=== PATIENT | male | born 1970 | race Caucasian/White ===

== ENCOUNTER 2017-02-22 02:19 | Inpatient (IN) | payer OTHER, MEDICARE ==
[~2017-02-22] VITALS: Ht 177.8 cm; Wt 101.2 kg
[~2017-02-22 02:19] MED LIST: ALBUTEROL1.25 MG/3 INH/SOL; ALLEGRA180 MG PO; AUGMENTIN 875875 MG PO; CIPRO 500MG TA500 MG PO; CLARITIN10 MG PO; COLACE100 MG PO; FLUTICASON0.05 MG/A2 INH; LIDODERM 5% PAT1 PAT TOP; MONTELUKAST SOD10 MG PO; MORPHINE SULFAT15 MG PO; OXYCODONE HCL30 MG PO; OXYCODONE HYDRO10 M1 PO; PRILOSEC 20MG C20 MG PO; REGLAN10 MG PO; Robitussin PO; Senokot S PO; VITAMIN D50000 IU PO
--- NOTE | 2017-02-22 03:42 | CT SCAN REPORT ---
EXAMINATION: CT ABDOMEN AND PELVIS WITHOUT CONTRAST CLINICAL INFORMATION: Nausea and vomiting. Abdominal distention. COMPARISON: 08/16/2014 TECHNIQUE: Multidetector volumetric imaging was performed from the superior aspect of the liver through the pubic symphysis. Sagittal and coronal reformatted images were obtained on the technologist's workstation. DLP: 1247 mGy-cm FINDINGS: LUNG BASES: The visualized lung bases are unremarkable. LIVER, GALLBLADDER, AND BILIARY TREE: The liver is enlarged, measuring 23 cm in CC dimension. There is diffusely decreased attenuation, consistent with hepatic steatosis. No focal hepatic lesion. The portal vein is patent. The gallbladder is not seen. It appears absent. PANCREAS: Mild atrophy with no focal abnormality. SPLEEN: Unremarkable. ADRENAL GLANDS: Fatty infiltration of both adrenal glands. Left adrenal fat attenuation nodule. KIDNEYS AND URETERS: Likely status post right nephrectomy. The left kidney is normal in size. No hydronephrosis or nephrolithiasis. Left midpole renal cyst is similar to prior. BLADDER: Unremarkable. GASTROINTESTINAL TRACT: The stomach is distended without wall thickening. The small bowel is fluid-filled and mildly prominent proximally with the distal small bowel decompressed. No obstruction. No colonic wall thickening. No inflammatory changes. Mild colonic stool burden. No free air or free fluid. ABDOMINAL WALL: No significant hernia is appreciated. LYMPH NODES: Normal. VASCULAR: Unremarkable. PELVIC VISCERA: The prostate and seminal vesicles are unremarkable. OSSEOUS STRUCTURES: Degenerative changes throughout the spine with hardware intact. Degenerative changes of the hips. IMPRESSION: Anterolaterally with hepatic steatosis. Fluid-filled small bowel proximally without obstruction. Distended stomach. Mild colonic stool burden.
--- NOTE | 2017-02-22 03:50 | ED GI/GU/ABDOMINAL COMPLAINT ---
History of Present Illness General Chief Complaint: Dizziness Stated Complaint: BIBA DIZZINESS Source: patient, old records, EMS, friend Exam Limitations: no limitations Vital Signs & Intake/Output Vital Signs & Intake/Output Vital Signs Date Time Temp Pulse Resp B/P B/P Pulse O2 O2 Flow FiO2 Mean Ox Delivery Rate 02/22 0555 129 20 141/93 97 Nasal 2.0L Cannula 02/22 0330 100.5 126 20 97 Nasal 2.0L Cannula 02/22 0240 96 Room Air Room Air 02/22 0224 98.1 115 18 137/73 98 Room Air Allergies Coded Allergies: MDX - Contrast Media, Iodine Relate (CONTRAST MEDIA, IODINE RELATED) (RAPID PULSE 02/22/17) Reconcile Medications Albuterol Sulfate (Albuterol Sulfate Nebulizer Soln) 1.25 MG/3 ML VIAL.NEB 3 ML INH/NAOMI PRN DYSPNEA (Reported) Docusate Sodium (Colace) 100 MG CAPSULE 1 CAP PO TID CONSTIPATION (Reported) ERGOCALCIFEROL (VITAMIN D2) (Vitamin D2) 50,000 UNIT CAPSULE 1 CAP PO QW SUPPLEMENT (Reported) Fexofenadine Hydrochloride (Janice) 180 MG TAB 1 TAB PO DAILY ALLERGIES ( Reported) Lidocaine HCl (Lidoderm Patch) 5 % PAT 1 PAT TOP DAILY PAIN (Reported) may wear up to 12 hours METOCLOPRAMIDE HCL (Reglan) 10 MG TABLET 1 TAB PO TID NAUSEA 30 minutes before meals and bedtime Omeprazole (Prilosec) 20 MG CAPSULE.DR 1 TAB PO DAILY AC ACID REFLUX OXYCODONE HCL (Oxycodone Hydrochloride) 10 MG TABLET 1 TAB PO TID PAIN Triage Note: 46YO MALE TO RM 10 FROM HOME W/CO VOMITING TONITE W/FEELING WEAK. HS PARAPLEGIA, INDWELLING CATH PRESENT. STTES IT "WAS CHANGED 4 D AGO" URINE DRAINING SLIGHTLY CLOUDY URINE. Triage Nurses Notes Reviewed? yes Onset: Evening Duration: hour(s):, constant, continues in ED, getting worse Timing: recent history Quality/Severity: aching, fullness, vomiting Location: left lower quadrant Radiation: no radiation Activities at Onset: none Prior Abdominal Problems: similar symptoms Past Sexual History: Unobtainable at this time Modifying Factors: Worsens With: palpation. Associated Symptoms: abdominal pain, diaphoresis, loss of appetite, nausea/ vomiting HPI: Less than 1 day prior to admission patient complains of left-sided abdominal pain improved with lying on his left side. He noted there was no urine output. He changed position reports that 2 L of urine drained. He subsequently developed nausea vomiting abdominal distention with chills diaphoresis anxiety. He denies fever diarrhea chest pain cough shortness of breath headache dysuria rash bleeding. Past History Travel History Traveled to [place] past 21 day No Medical History Any Pertinent Medical History? 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 aunt (breast cancer). Relation not specified for: FH: breast cancer FH: prostate cancer Hx Contributory? No Review of Systems Review of Systems Constitutional: Reports: see HPI, chills, diaphoresis, malaise, weakness. EENTM: Reports: no symptoms. Respiratory: Reports: no symptoms. Cardiovascular: Reports: no symptoms. GI: Reports: see HPI, abdominal pain, bloating, distention, nausea, vomiting. Genitourinary: Reports: see HPI. Musculoskeletal: Reports: no symptoms. Skin: Reports: no symptoms. Neurological/Psychological: Reports: no symptoms. Hematologic/Endocrine: Reports: no symptoms. Immunologic/Allergic: Reports: no symptoms. All Other Systems: Reviewed and Negative Physical Exam Physical Exam General Appearance: well developed/nourished, alert, awake, anxious, moderate distress Head: atraumatic, normal appearance Eyes: Bilateral: normal appearance, PERRL, EOMI, normal inspection. Ears, Nose, Throat, Mouth: hearing grossly normal, moist mucous membrane Neck: normal inspection, supple, full range of motion, normal alignment Respiratory: normal breath sounds, chest non-tender, no respiratory distress, quiet respiration, lungs clear Cardiovascular: regular rate/rhythm, normal peripheral pulses, norml femoral pulses equa Peripheral Pulses: 4+ carotid (R), 4+ carotid (L) Gastrointestinal: soft, abnormal bowel sounds, distention, tenderness Male Genitals: normal genitalia Back: decreased range of motion, no vertebral tenderness Extremities: limited range of motion Neurologic/Psych: awake, alert, oriented x 3, 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 No Sepsis Present: No Sepsis Focused Exam Completed? No Progress Differential Diagnosis: bowel obstruction, gastritis, pancreatitis, PUD/GERD Plan of Care: Orders Procedure Date/time Status CBC WITHOUT DIFFERENTIAL 02/23 0600 Active BASIC ELECTROLYTES PLUS BUN&CR 02/23 0600 Active Consistent Carbohydrate 2 02/22 B Active LACTIC ACID 02/22 0908 Active FingerStick- Glucose 02/22 0619 Active Add-on Test (ER Only) 02/22 0618 Active LACTIC ACID 02/22 0608 Active EKG 02/22 0605 Active Pathway - chart 02/22 0543 Active Pathway - chart 02/22 0505 Active House Staff 02/22 0505 Active Patient Data 02/22 0505 Active BLOOD CULTURE 02/22 0505 Active OXYGEN SETUP (GEN) 02/22 0445 Active Saline Lock 02/22 0445 Active Admit to inpatient 02/22 0445 Active Vital Signs 02/22 0445 Active Activity/Ambulation 02/22 0445 Active Code Status 02/22 0445 Active GLYCOSYLATED HGB 02/22 0300 Active CULTURE,URINE 02/22 0246 Active URINALYSIS 02/22 0246 Complete LIPASE 02/22 0246 Active COMPREHENSIVE METABOLIC PANEL 02/22 0246 Active CBC WITHOUT DIFFERENTIAL 02/22 0246 Complete Intake & Output 02/22 0221 Active VTE Mechanical Prophylaxis 02/22 UNK Active Current Medications Sig/Brissa Start time Last Medication Dose Stop Time Status Admin Ceftazidime 1,000 MG Q8H 02/22 1200 AC (Fortaz) Ceftriaxone Sodium 1,000 MG DAILY 02/22 1000 CAN (Rocephin) Enoxaparin Sodium 40 MG DAILY 02/22 1000 AC (Lovenox) Metoclopramide HCl 10 MG TID 02/22 1000 AC (Reglan) Omeprazole 20 MG DAILY AC 02/22 0700 AC (Prilosec) Acetaminophen 650 MG Q6P PRN 02/22 0545 AC (Tylenol) Morphine Sulfate 2 MG Q4P PRN 02/22 0545 AC (Morphine) Oxycodone HCl 10 MG Q6P PRN 02/22 0545 AC (Roxicodone) Docusate Sodium 100 MG TID 02/22 0543 AC (Colace) Sodium Chloride 1,000 ML Q13H 02/22 0515 AC (Normal Saline 0.9%) Laboratory Tests 02/22/17 0340: CBC w Diff NO MAN DIFF REQ, RBC 5.52, MCV 82.0, MCH 26.5 L, RDW 15.8 H, MPV 9.5, Gran % 90.4 H, Lymphocytes % 7.2 L, Monocytes % 2.2, Eosinophils % 0.1, Basophils % 0.1, Absolute Granulocytes 18.8 H, Absolute Lymphocytes 1.5, Absolute Monocytes 0.4, Absolute Eosinophils 0, Absolute Basophils 0, PUBS MCHC 32.3 L 02/22/17 0300: Anion Gap 22 H, Estimated GFR > 60, BUN/Creatinine Ratio 44.0 H, Glucose 296 H, Hemoglobin A1c Pending, Calcium 10.1, Total Bilirubin 1.2, AST 38, ALT 43, Alkaline Phosphatase 100, Total Protein 9.5 H, Albumin 4.8, Globulin 4.7 H, Albumin/Globulin Ratio 1.0 L, Lipase 60, Urinalysis MOD H, Urine Color YEL, Urine Clarity CLDY H, Urine pH 6.5, Ur Specific [place] 1.025, Urine Protein 100 H, Urine Ketones TRACE H, Urine Nitrite NEG, Urine Bilirubin NEG, Urine Urobilinogen 1.0, Ur Leukocyte Esterase LARGE H, Ur Microscopic SEDIMENT EXAMINED, Urine RBC 15-25 H, Urine WBC PACKD H, Ur Epithelial Cells FEW, Urine Bacteria MOD H, Urine Mucus FEW, Urine Hemoglobin MOD H, Urine Glucose NEG Microbiology 02/22 0505 BLOOD: Blood Culture - COLB 02/22 0505 BLOOD: Blood Culture - COLB 02/22 0300 URINE ROUT: Urine Culture - RECD Diagnostic Imaging: Viewed by Me: CT Scan. Discussed w/RAD: CT Scan. Radiology Impression: Anterolaterally with hepatic steatosis. Fluid-filled small bowel proximally without obstruction. Distended stomach. Mild colonic stool burden. Initial ED EKG: none Departure Departure Time of Disposition: 0450 Disposition: STILL A PATIENT Condition: Stable Clinical Impression Primary Impression: UTI (urinary tract infection) due to urinary indwelling Rocha catheter Secondary Impressions: Acute abdominal pain in left lower quadrant, Leukocytosis , Nausea and vomiting Referrals: Afsaneh PETTY,Alba Dave (PCP/Family) Departure Forms: Customer Survey General Discharge Information Admission Note Spoke With: Fili PETTY,Anna Documentation of Exam: Documentation of any treatments & extenuating circumstances including Concerns Regarding Discharge (functional status, medication knowledge or non-compliance, living conditions, etc.) that warrant an admission rather than observation: IV antibiotics and rehydration and IV antiemetic medication adjustment 0 lab exam follow cultures continuing care discharge planning
[2017-02-22 04:00] LABS: ABSOLUTE BASOPHIL COUNT 0 /CUMM (0.0-0.2); ABSOLUTE EOSINOPHIL COUNT 0 /CUMM (0.0-0.7); ABSOLUTE GRANULOCYTE CT 18.8 /CUMM (1.4-6.5); ABSOLUTE LYMPH COUNT 1.5 /CUMM (1.2-3.4); ABSOLUTE MONOCYTE COUNT 0.4 /CUMM (0.10-0.60); BASOPHIL % 0.1 % (0.0-2.0); EOSINOPHIL % 0.1 % (0-5); GRANULOCYTE % 90.4 % (42.2-75.2); HEMATOCRIT 45.2 % (42-52); MEAN CORPUSCULAR HGB 26.5 PG (27.0-31.0); MEAN CORPUSCULAR HGB CONC 32.3 G/DL (33.0-37.0); PLATELET COUNT 352 /CUMM (130-400); RBC DISTRIBUTION WIDTH 15.8 % (11.5-14.5); RED BLOOD CELL CT 5.52 /CUMM (4.70-6.10); WHITE BLOOD CELL COUNT 20.8 /CUMM (4.8-10.8)
[2017-02-22 04:17] LABS: MEAN PLATELET VOLUME 9.5 FL (7.4-10.4)
--- NOTE | 2017-02-22 05:02 | History & Physical ---
Arpita Adams MD,[facility] 02/22/17 0459: General Information and HPI MD Statement: I have seen and personally examined RITO BAUTISTA and documented this H&P. The patient is a 46 year old M who presented with a patient stated chief complaint of dizziness. Source of Information: patient, old records History of Present Illness: Patient is 46 y M with PMH of quadriplegia (from home- after an accident in childhood when falled from slide), chronic indewelling cath, impaired glucose tolerance, was BIBA to ED with CC of vomiting and abdominal pain. Nursing aid was present at the bedside but history was taken mainly from patient himself ( Mother generally takes care of his needs who is out of town for 2 days). Patient reported that he was totally fine till yesterday afternoon. He ate dinner at 6 PM (home prepared, broccoli, meat, potato) but soon after at 8 PM he started to have vomiting (nonbloody X 3 times) and abdominal pain. He described abdominal pain as being generalized, initially 10 over 10 (7/10 at the time of interview), no radiation, no aggravating or aggravating factors. He denied any diarrhea; in fact he is generally constipated and last bowel movement was one day ago. He also denied any fever or chills. Patient has chronic indwelling catheter which is being changed every 12-15 days (usually by mother) and it doesn't follow any urologist. He was also last diagnosed in October 2016 for impaired glucose tolerance but was decided to be managed conservatively for the time. Patient occasionally smokes cigarettes, but denies alcohol intake. He reported allergy to contrast (rash and increased blood pressure). Patient lives at home and his mother mostly take care of his health needs, but occasionally has nursing air. Allergies/Medications Home Med list Albuterol Sulfate (Albuterol Sulfate Nebulizer Soln) 1.25 MG/3 ML VIAL.NEB 3 ML INH/NAOMI PRN DYSPNEA (Reported) Docusate Sodium (Colace) 100 MG CAPSULE 1 CAP PO TID CONSTIPATION (Reported) ERGOCALCIFEROL (VITAMIN D2) (Vitamin D2) 50,000 UNIT CAPSULE 1 CAP PO QW SUPPLEMENT (Reported) Fexofenadine Hydrochloride (Janice) 180 MG TAB 1 TAB PO DAILY ALLERGIES ( Reported) Lidocaine HCl (Lidoderm Patch) 5 % PAT 1 PAT TOP DAILY PAIN (Reported) may wear up to 12 hours METOCLOPRAMIDE HCL (Reglan) 10 MG TABLET 1 TAB PO TID NAUSEA 30 minutes before meals and bedtime Omeprazole (Prilosec) 20 MG CAPSULE.DR 1 TAB PO DAILY AC ACID REFLUX OXYCODONE HCL (Oxycodone Hydrochloride) 10 MG TABLET 1 TAB PO TID PAIN Past History Travel History Traveled to [place] past 21 day No Medical History Gastrointestinal: gastroparesis Musculoskeletal: QUADRIPLEGIC History of MRSA: No History of VRE: No History of CDIFF: No Pneumonia Vaccine: 11/12/11 Surgical History Surgical History: cholecystectomy, right nephrectomy Past Family/Social History Family History Relations & Conditions if any Uncle (Prostate cancer). aunt (breast cancer). Relation not specified for: FH: breast cancer FH: prostate cancer Psychosocial History Services at Home: Home Health Aide, Nursing Primary Language: Bengali Living Will? no Functional Ability Ambulation: quadriplegic Sexual History Past Sexual History Unobtainable at this time Review of Systems Review of Systems Constitutional: Reports: see HPI. Exam & Diagnostic Data Last 24 Hrs of Vital Signs/I&O Vital Signs Date Time Temp Pulse Resp B/P B/P Pulse O2 O2 Flow FiO2 Mean Ox Delivery Rate 02/22 0240 96 Room Air Room Air 02/22 0224 98.1 115 18 137/73 98 Room Air Physical Exam General Appearance Alert, Oriented X3, Cooperative, No Acute Distress Skin Chronic wound over the right knee, dressing in place Skin Temp/Moisture Exam: Warm/Dry Sepsis Skin Exam (color): Normal for Ethnicity HEENT Atraumatic, EOMI, right pupil relatively mydriatic compared to left side, post reactive to light (Patient reported to have this condition in the baseline) , Mucous memb dry Neck Supple, No JVD Cardiovascular Regular Rate, Normal S1, Normal S2 Lungs Clear to Auscultation Abdomen abdomen tense, patient noted mild tenderness in palpitation, indwelling cath in place Neurological Normal Speech, bilateral quadriplegic, no sensation in limbs, sensation level in mid chest Extremities as noted above Last 24 Hrs of Labs/Lewis: Laboratory Tests 02/22/17 0340: CBC w Diff NO MAN DIFF REQ, RBC 5.52, MCV 82.0, MCH 26.5 L, RDW 15.8 H, MPV 9.5, Gran % 90.4 H, Lymphocytes % 7.2 L, Monocytes % 2.2, Eosinophils % 0.1, Basophils % 0.1, Absolute Granulocytes 18.8 H, Absolute Lymphocytes 1.5, Absolute Monocytes 0.4, Absolute Eosinophils 0, Absolute Basophils 0, PUBS MCHC 32.3 L 02/22/17 0300: Anion Gap 22 H, Estimated GFR > 60, BUN/Creatinine Ratio 44.0 H, Glucose 296 H, Calcium 10.1, Total Bilirubin 1.2, AST 38, ALT 43, Alkaline Phosphatase 100, Total Protein 9.5 H, Albumin 4.8, Globulin 4.7 H, Albumin/Globulin Ratio 1.0 L, Lipase 60, Urinalysis MOD H, Urine Color YEL, Urine Clarity CLDY H, Urine pH 6.5, Ur Specific [place] 1.025, Urine Protein 100 H, Urine Ketones TRACE H, Urine Nitrite NEG, Urine Bilirubin NEG, Urine Urobilinogen 1.0, Ur Leukocyte Esterase LARGE H, Ur Microscopic SEDIMENT EXAMINED, Urine RBC 15-25 H, Urine WBC PACKD H, Ur Epithelial Cells FEW, Urine Bacteria MOD H, Urine Mucus FEW, Urine Hemoglobin MOD H, Urine Glucose NEG Microbiology 02/22 0505 BLOOD: Blood Culture - COLB 02/22 0505 BLOOD: Blood Culture - COLB 02/22 0300 URINE ROUT: Urine Culture - RECD Assessment/Plan Assessment: 46 y M with BIBA with vomiting and abdominal pain 2 h after dinner PMH: quadriplegia (from home- after an accident in childhood when falled from slide), chronic indewelling cath, impaired glucose tolerance Cath changed every 12-15 days by mom VS, Ph Ex at admission: MAXIMUM TEMPERATURE 98.1 (later was 100.5), BP 137/73, NC 115, RR 18 Labs at admission: WBC 20.8, Hgb 14.6, PLT 352, BEP: K 5.6, glucose 296 others in significant, UA significant for RBC 15-25, WBC packed, LE positive Imagings at admission: Abd/pelvic CT: Anterolaterally with hepatic steatosis. Fluid-filled small bowel proximally without obstruction. Distended stomach. Mild colonic stool burden. Patient was admitted to floor for management of following conditions: Sepsis in setting of UTI, chronic indwelling cath Patient meets the criteria for sepsis considering fever, tachycardia, white count and active UA. Patient had a history of Pseudomonas infection in the past. -Admit to [facility] floor -Monitor vital signs -IV fluids - BC X2 -Ceftaz -Lactic acid level, monitor and trend - Consider to remove indwel cath - consider urology consult Impaired Glucose Tolerance Increased glucose could be related to stress hormons associated with infection. Patient also reported history of borderline DM being managed conservatively. -Accuchecks - Hb A1C -consider low dose sliding scale if BS >250 consistently Hyperkalemia Etiology unknown, we get EKG, administer Keyox specially considering history of constipation, and will monitor - EKG - keyox - monitor Chronic medical condition: Quadriplegia, GERD, back pain No acute change in conditions. we continue home meds and continue to monitor. - Continue Reglan - Continue Prilosec - oxycodone, MS, Tylenol Change in O2 requirement We will get and CXR, considering patients bed bound condition we will rule out PE - CXR - Consider ABG, D Dimer (could be high due to infection) - O2 supplements as needed FC DVT Ppx: A LPS/Pharmacological Consistent carbohydrate diet As Ranked By This Provider Problem List: 1. UTI (urinary tract infection) due to urinary indwelling Rocha catheter 2. Sepsis Core Measures/Misc (10/28) Acute Coronary Syndrome ACS Diagnosis: No Congestive Heart Failure Congestive Heart Failure Diagnosis No Cerebrovascular Accident CVA/TIA Diagnosis: No VTE (View Protocol) VTE Risk Factors Age>40 No Mechanical VTE Prophylaxis d/t N/A MechProphylax Ordered No VTE Pharm Prophylaxis d/t NA PharmProphylax ordered Sepsis (View protocol) Sepsis Present: Yes Melissa Braden 02/22/17 0620: General Information and HPI Allergies/Medications Allergies: Coded Allergies: Iodinated Contrast- Oral and IV Dye (Intermediate, RAPID PULSE 02/22/17) Resident Review Statement Resident Statement: examined this patient, discussed with internet marketing specialist Other Findings: Patient is a 46-year-old gentleman with past medical history significant for quadriplegia(after childhood traumatic accident) on chronic indwelling Rocha catheter, history of chronic pain,had multiple surgeries, chronic opiate dependence, borderline diabetes mellitus, presented to the ED with chief complaints of nausea vomiting with abdominal discomfort. Patient mentioned that his symptoms started after having after having dinner at around 6 PM. Had 3-4 episodes of nonbilious non-bloody vomiting associated with generalized abdominal discomfort. Denied any fever or chills. Denied any prior infections / hospitalizations. Denied any diarrhea, mentioned that he has been constipated. Reported some trouble breathing w/o any chest discomfort/ palpitations. As mentioned above patient has indwelling Rocha catheter, gets changed every 12- 14 days(by mother). Patient does not follow up with any urologist as an outpatient. Patient has been admitted in the past for urinary tract infection with urine cultures positive for Escherichia coli , Citrobacter and Pseudomonas He has a 24-hour caregiver at home. yesterday. Vitals on admission temperature 98.1(now 100.5), pulse 115, respiratory rate 18, blood pressure 137/73 on room air. On examination On examination: General Appearance:alert oriented 3 in mild distress Skin: Grossly normal HEENT: On equal pupils, right pupil mid dilated as compared to his left pupil. Neck: Supple, No JVD Cardiovascular: Regular Rate, Normal S1, Normal S2. Lungs: Lungs clear to auscultation bilaterally Abdominal exam : Denies abdominal tenderness without any rebound with positive bowel sounds. Neurological: Normal Speech, no sensations below mid chest level region. Pertinent labs on admission leukocytosis of 20.8 without any bandemia H&H stable 14.6/45.2, hyperkalemia 5.6, when necessary trended and 22/0.5, elevated blood sugar levels 296. Urinalysis positive for Large leukocyte esterase. CT abdomen and pelvis Anterolaterally with hepatic steatosis. Fluid-filled small bowel proximally without obstruction. Distended stomach. Mild colonic stool burden. Assessment and plan Patient is a 46-year-old overweight gentleman with past medical history significant for quadriplegia(after childhood traumatic accident) on chronic indwelling Rocha catheter, history of chronic pain,had multiple surgeries, chronic opiate dependence, borderline diabetes mellitus, presented to the ED with chief complaints of nausea vomiting with abdominal discomfort. Urinalysis is positive for large leukocyte esterase. He is septic with elevated WBC count, febrile and tachycardic with a source of infection. Previous cultures reveal Escherichia coli Pseudomonas and Citrobacter so we will start him on broad-spectrum antibiotics(ceftazidime) to cover for possible pseudomonal infection. Problem list 1. Sepsis of urological origin-history of chronic indwelling Rocha catheter. 2. hypoxia (not on oxygen at home) 3. Hyperkalemia 4 Impaired blood sugar (levels history of borderline diabetes mellitus) 5history significant for quadriplegia(after childhood traumatic accident) on chronic indwelling Rocha catheter 6. History of chronic back pain(opiate dependence) Plan 1. Sepsis of urological origin-history of chronic indwelling Rocha catheter * Admit the patient to the [facility] floor. * Patient received one-time dose of ceftriaxone in the ED, as his prior cultures grew Pseudomonas in the past will cover him with IV ceftazidime for now. * Obtain blood and urine cultures. * Modify antibiotics according to cultures * Aggressively hydrated with IV fluids. * Obtain lactic acid levels. * Monitor vitals every 2-4 hours. * Watch for any hemodynamic instability. * Change the Rocha catheter. 2 Acute hypoxia (not on oxygen at home): * obtain CXR. * blood cultures pending. * If CXR is normal and pt remains hypoxic ,obtain d dimer and ABG with CTA to rule out PE(as he is quardreplegic, risk for PE). 3. Hyperkalemia * Potassium of 5.6. * Give one dose of kayxelate, recheck labs later on. * Obtain EKG. 4. Impaired blood sugar (levels history of borderline diabetes mellitus). * Check hemoglobin A1c levels. * Accu-Cheks. * If blood sugar levels are constantly above 250 ,consider starting low-dose NovoLog sliding scale. * Carbohydrate consistent diet 5.history significant for quadriplegia(after childhood traumatic accident) on chronic indwelling Rocha catheter * Change the Rocha catheter. * Consider urology consult. 6. History of chronic back pain(opiate dependence) * Continue home dose of oxycodone. Moderate to severe pain control with oxycodone and morphine DVT prophylaxis with subcutaneous Lovenox Patient is full code Lukasz Buckner MD 02/22/17 1208: Attending MD Review Statement Attending Statement Attending MD Statement: examined this patient, discuss w/resident/PA/SURVEYING CREW RODMAN, agreed w/resident/PA/SURVEYING CREW RODMAN, reviewed EMR data (avail) Attending Assessment/Plan: 46M PMH quadriplegia (after childhood traumatic accident) on chronic indwelling Rocha catheter, history of chronic pain with opiate dependence with nausea, vomiting, and lower abdominal pain, found to have UA suggestive of UTI with fever 100.5, WBC 20, and history of recurrent UTI with E.coli, Pseudomonas, and Citrobacter. Still with abdominal discomfort, no longer vomiting, mildly tachcardic 110 and sinus. 1. Sepsis secondary to UTI 2. Quadriplegia Plan - Admit to general medicine - Start Ceftazidime - Urine and blood cultures - Urology consult - Continue home medications - DVT PPx
--- NOTE | 2017-02-22 08:25 | RADIOLOGY REPORT ---
EXAMINATION: XR PORTABLE CHEST CLINICAL INFORMATION: Lung consolidation. Hypoxia. COMPARISON: Chest x-ray 08/16/2014. TECHNIQUE: Portable 85 degrees semiupright AP view of the chest was obtained. FINDINGS: The lung rosales are well-expanded bilaterally. The previously noted bibasilar interstitial markings are less prominent, and are most consistent with atelectasis. A small left pleural effusion may be present. The cardiac silhouette is normal in size. The superior mediastinum is slightly wide, but stable. No central venous catheters are noted on the current study. Spinal rods are noted with anchoring wires which appears similar compared to the prior study. Cerclage wires appear to be projected over the lower cervical spine. The osseous changes at the bilateral coracoclavicular and acromioclavicular joints are unchanged. IMPRESSION: 1. There is no focal consolidation. Linear opacities at the bases are consistent with atelectasis. 2. Stable osseous findings and spinal hardware.
[2017-02-22 10:28] VITALS: BP 118/64
--- NOTE | 2017-02-22 12:12 | Admission Certification ---
Admission Certification Certification Statement - As attending physician, I certify that at the time of - admission, based on clinical presentation, severity of - symptoms, need for further diagnostic testing and - therapeutic interventions, and risk of adverse outcomes - without in-hospital treatment, in my clinical assessment, - this patient requires an acute hospital stay for a minimum - of two nights or longer. I have also considered psychsocial - factors such as support system, advanced age, financial - issues, cognitive issues, and failed out-patient treatments, - past re-admission history, safety of patient, and lack of - compliance as applicable. Specific rationale supporting this admission is: Sepsis secondary to UTI
[2017-02-22 15:50] VITALS: BP 100/56
--- NOTE | 2017-02-22 17:27 | ULTRASOUND REPORT ---
PROCEDURE: ULTRASOUND AND FLUOROSCOPICALLY GUIDED RIGHT INTERNAL JUGULAR VEIN TRIPLE-LUMEN PLACEMENT Interventional radiologist: Montez Heard M.D. CLINICAL HISTORY: 46-year-old male with poor venous access. Triple lumen requested. COMPARISON: Fluoroscopic-guided triple-lumen placement 08/16/2014 MEDICATION: 1% lidocaine was used for local anesthetic. FLUOROSCOPIC TIME: 0.6 minutes DOSE AREA PRODUCT: 2.8 Gy-cm2 (ma-centimeter squared) TECHNIQUE: Informed consent was obtained from the patient prior to the procedure. During this process, the procedure and potential alternatives were explained along with the intended outcome and benefits. The risks of the procedure, including the possibility of an unsuccessful procedure, as well as the risk of not doing the procedure were discussed. The patient was given the opportunity to ask questions regarding the procedure and appeared competent to make medical decisions. A signed consent form which documents this discussion was placed in the medical record. A timeout procedure was performed. Following informed consent the patient was placed supine on the fluoroscopic table. The right neck and chest were prepped and draped in usual sterile fashion. All elements of maximal sterile barrier technique were followed including use of cap, mask, sterile gown, sterile gloves, a sterile full body drape and hand hygiene. The skin was prepared with 2% chlorhexidine for cutaneous antisepsis and sterile ultrasound preparation with sterile gel and probe cover was performed when applicable. Using ultrasound guidance the right internal jugular vein was localized. Ultrasound was utilized to assess the vascular structures for access. A standard puncture into the right internal jugular vein was performed with a Micro-Stick system. The wire was advanced into the IVC to confirm venous placement. Over the wire dilatation was performed and a triple lumen catheter was advanced over the wire. Catheter terminates at the cavoatrial junction.. Silk suture was utilized for catheter securement. A sterile dressing was placed. The patient tolerated the procedure well. The patient was transferred back to the floor in stable condition. ULTRASOUND-GUIDED VASCULAR ACCESS: Ultrasound was used to identify the right internal jugular vein. The right internal jugular vein was confirmed to be patent. Real time imaging confirmed needle access into the right internal jugular vein. An image was saved for permanent recording in PACS. IMPRESSION: Successful placement of triple-lumen catheter via the right internal jugular vein.
[2017-02-22 22:34] VITALS: BP 106/60
[2017-02-23 06:10] VITALS: BP 116/64
[2017-02-23 06:31] LABS: ABSOLUTE BASOPHIL COUNT 0 /CUMM (0.0-0.2); ABSOLUTE EOSINOPHIL COUNT 0.2 /CUMM (0.0-0.7); ABSOLUTE GRANULOCYTE CT 5.3 /CUMM (1.4-6.5); BASOPHIL % 0.5 % (0.0-2.0)
[2017-02-23 06:42] LABS: ABSOLUTE LYMPH COUNT 2.2 /CUMM (1.2-3.4); ABSOLUTE MONOCYTE COUNT 0.6 /CUMM (0.10-0.60); EOSINOPHIL % 2.7 % (0-5); GRANULOCYTE % 63.9 % (42.2-75.2); MEAN CORPUSCULAR HGB CONC 32.7 G/DL (33.0-37.0); MEAN CORPUSCULAR VOLUME 82.3 FL (80.0-94.0); MEAN PLATELET VOLUME 8.5 FL (7.4-10.4); PLATELET COUNT 207 /CUMM (130-400); RBC DISTRIBUTION WIDTH 16.5 % (11.5-14.5)
[2017-02-23 06:45] LABS: WHITE BLOOD CELL COUNT 8.3 /CUMM (4.8-10.8)
[2017-02-23 06:46] LABS: HEMATOCRIT 32.1 % (42-52)
--- NOTE | 2017-02-23 09:10 | PN- Housestaff ---
Nilsa PETTY,Radha 02/23/17 0910: Subjective Follow-up For: 1. Sepsis of urological origin-history of chronic indwelling Macias catheter. 2. hypoxia (not on oxygen at home) 3. Hyperkalemia 4 Impaired blood sugar (levels history of borderline diabetes mellitus) 5history significant for quadriplegia(after childhood traumatic accident) on chronic indwelling Macias catheter 6. History of chronic back pain(opiate dependence) Subjective: Patient is seen and examined at bedside, he complains of suprapubic pain, chronic neck and shoulder pain, also complains of constipation. He denies fever , chills, nausea, vomiting, his hemoglobin was noticed to drop from 14.6 TO 10.5 , will follow up on repeat CBC in the evening. Review of Systems Constitutional: Denies: no symptoms. Cardiovascular: Denies: no symptoms. Respiratory: Denies: no symptoms. Gastrointestinal: Denies: no symptoms. Genitourinary: Reports: pain. Objective Last 24 Hrs of Vital Signs/I&O Vital Signs Date Time Temp Pulse Resp B/P B/P Pulse O2 O2 Flow FiO2 Mean Ox Delivery Rate 02/23 0610 97.6 98 18 116/64 97 BIPAP 02/23 0226 90 96 02/23 0100 90 97 02/23 0055 100 Nasal 2.0L Cannula 02/22 2234 97.8 94 20 106/60 99 Nasal 2.0L Cannula 02/22 1550 98.0 94 20 100/56 98 Room Air 02/22 1312 99 Nasal 2.0L Cannula Intake & Output 02/23 1600 02/23 0800 02/23 0000 Intake Total 1040 400 Output Total 950 350 Balance 90 50 Intake, IV 800 400 Intake, Oral 240 Output, Urine 950 350 Physical Exam General Appearance: Alert, Oriented X3, Cooperative, No Acute Distress Neck: Supple, No JVD, No thryomegaly Cardiovascular: Normal S1, Normal S2, No Murmurs Lungs: Clear to Auscultation, Normal Air Movement Abdomen: Soft, No Tenderness, DECREASED BOWEL SOUNDS, MILD SUPRAPUBIC TENDERNESS , MACIAS IN PLACE AND DRAINING 800 CC Neurological: Normal Speech Assessment/Plan Assessment: 1. Sepsis of urological origin-history of chronic indwelling Macias catheter * Solitary left kidney * Continue to monitor on [facility] floor. * Patient received one-time dose of ceftriaxone in the ED, as his prior cultures grew Pseudomonas in the past * Continue IV ceftazidime for now. * Follow up on blood and urine cultures. * Modify antibiotics according to cultures * Aggressively hydrated with IV fluids. * Obtain lactic acid levels. * Monitor vitals every 2-4 hours. * Watch for any hemodynamic instability. * Continue Macias catheter, as per urology recommendation 2 .hypoxia (not on oxygen at home): * obtain CXR. * blood cultures pending. * If CXR is normal and pt remains hypoxix,obtain d dimer and ABG with CTA to rule out PE(as he is quardreplegic, risk for PE). 3. Hyperkalemia Improved * WAS Given one dose of kayxelate, 4. Impaired blood sugar (levels history of borderline diabetes mellitus). * Check hemoglobin A1c levels. * Accu-Cheks. * If blood sugar levels are constantly above 250 ,consider starting low-dose NovoLog sliding scale. * Carbohydrate consistent diet 5.history significant for quadriplegia(after childhood traumatic accident) on chronic indwelling Macias catheter * Change the Macias catheter. * Consider urology consult. 6. History of chronic back pain(opiate dependence) * Continue home dose of oxycodone. Moderate to severe pain control with oxycodone and morphine DVT prophylaxis with subcutaneous Lovenox Patient is full code Problem List: 1. Sepsis 2. Acute abdominal pain in left lower quadrant 3. Nausea and vomiting 4. UTI (urinary tract infection) due to urinary indwelling Macias catheter Pain Ratin Pain Location: lower abdomen, neck Pain Goal: Pain 4 or less Pain Plan: per pathway Tomorrow's Labs & Rationales: cbc bep DVT/Prophylaxis: mechanical, pharmacological Lukasz Buckner MD 02/23/17 1549: Attending MD Review Statement Attending Statement Attending MD Statement: examined this patient, discuss w/resident/PA/JAVA CONSULTANT, agreed w/resident/PA/JAVA CONSULTANT, reviewed EMR data (avail) Attending Assessment/Plan: 46M PMH quadriplegia (after childhood traumatic accident) on chronic indwelling Macias catheter, history of chronic pain with opiate dependence with nausea, vomiting, and lower abdominal pain, found to have UA suggestive of UTI with fever 100.5, WBC 20, and history of recurrent UTI with E.coli, Pseudomonas, and Citrobacter. Much improved today. No longer appears ill, much more alert and energetic. Afebrile, stable vitals, urine culture growing gram negative rods. 1. Gram negative sepsis secondary to UTI 2. Quadriplegia Plan - Continue on general medicine - Continue Ceftazidime, narrow tomorrow when cultures return - Urine and blood cultures - Follow urology recommendations - Continue home medications - DVT PPx - Anticipated discharge tomorrow or Saturday depending on culture results and clinical course
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
[2017-02-23 15:00] VITALS: BP 116/60
[2017-02-23 23:54] VITALS: BP 130/78
[2017-02-24 02:29] LABS: ABSOLUTE BASOPHIL COUNT 0 /CUMM (0.0-0.2); ABSOLUTE EOSINOPHIL COUNT 0.2 /CUMM (0.0-0.7); ABSOLUTE GRANULOCYTE CT 5.2 /CUMM (1.4-6.5); ABSOLUTE LYMPH COUNT 2.1 /CUMM (1.2-3.4); ABSOLUTE MONOCYTE COUNT 0.6 /CUMM (0.10-0.60); BASOPHIL % 0.5 % (0.0-2.0); EOSINOPHIL % 2.3 % (0-5); GRANULOCYTE % 63.5 % (42.2-75.2); MEAN CORPUSCULAR HGB 26.9 PG (27.0-31.0); MEAN CORPUSCULAR HGB CONC 32.5 G/DL (33.0-37.0); MEAN CORPUSCULAR VOLUME 82.8 FL (80.0-94.0); MEAN PLATELET VOLUME 8.7 FL (7.4-10.4); PLATELET COUNT 221 /CUMM (130-400); RBC DISTRIBUTION WIDTH 15.7 % (11.5-14.5)
[2017-02-24 02:52] LABS: HEMATOCRIT 30.7 % (42-52); RED BLOOD CELL CT 3.71 /CUMM (4.70-6.10); WHITE BLOOD CELL COUNT 8.2 /CUMM (4.8-10.8)
[2017-02-24 08:08] VITALS: BP 149/93
[2017-02-24 08:23] LABS: ABSOLUTE BASOPHIL COUNT 0 /CUMM (0.0-0.2); ABSOLUTE EOSINOPHIL COUNT 0.2 /CUMM (0.0-0.7); ABSOLUTE GRANULOCYTE CT 5.2 /CUMM (1.4-6.5); ABSOLUTE LYMPH COUNT 1.9 /CUMM (1.2-3.4); ABSOLUTE MONOCYTE COUNT 0.5 /CUMM (0.10-0.60); BASOPHIL % 0.4 % (0.0-2.0); EOSINOPHIL % 2.5 % (0-5); GRANULOCYTE % 66.5 % (42.2-75.2); HEMATOCRIT 32.5 % (42-52); MEAN CORPUSCULAR HGB 27.3 PG (27.0-31.0); MEAN CORPUSCULAR VOLUME 82.7 FL (80.0-94.0); MEAN PLATELET VOLUME 9.1 FL (7.4-10.4); PLATELET COUNT 201 /CUMM (130-400); RBC DISTRIBUTION WIDTH 15.3 % (11.5-14.5); RED BLOOD CELL CT 3.93 /CUMM (4.70-6.10); WHITE BLOOD CELL COUNT 7.9 /CUMM (4.8-10.8)
[2017-02-24] MEDS ORDERED: AUGMENTIN 875-1 EACH PO ×2 (12:04→12:19)
[2017-02-24] MEDS ORDERED: METFORMIN HCL500 M2 PO ×2 (12:04→12:19)
--- NOTE | 2017-02-24 12:08 | Patient Discharge Instructions ---
Discharge Instructions General Discharge Information You were seen/treated for: UTI Special Instructions: please follow up with your PCP within 1 week. please follow up with your urologist after discharge. please follow up with [facility] after discharge. Diet Continue normal diet: No Recommended Diet: Diabetic Activity Activity Self Limited: Yes Acute Coronary Syndrome Inclusion Criteria At DC or during hospital stay patient has or had the following: ACS DIAGNOSIS No Discharge Core Measures Meds if any: Prescribed or Continued at Discharge Meds if any: NOT Prescribed or Continued at Discharge Congestive Heart Failure Inclusion Criteria At DC or during hospital stay patient has or had the following: CHF DIAGNOSIS No Discharge Core Measures Meds if any: Prescribed or Continued at Discharge Meds if any: NOT Prescribed or Continued at Discharge Cerebrovascular accident Inclusion Criteria At DC or during hospital stay patient has or had the following: CVA/TIA Diagnosis No Discharge Core Measures Meds if any: Prescribed or Continued at Discharge Meds if any: NOT Prescribed or Continued at Discharge Venous thromboembolism Inclusion Criteria VTE Diagnosis No VTE Type NONE VTE Confirmed by (Test) NONE Discharge Core Measures - Per Current guidelines, there needs to be overlap - treatment for the first 5 days of Warfarin therapy. - If discharged on Warfarin prior to 5 days of - overlap therapy, the patient will need to be - assessed for post discharge needs including - *Post discharge parental anticoagulation - *Warfarin and/or parental anticoagulation education - *Follow up date to check INR post discharge At least 5 days overlap therapy as Inpatient No Meds if any: Prescribed or Continued at Discharge Note: Overlap Therapy is Warfarin and Anticoagulant Meds if any: NOT Prescribed or Continued at Discharge
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
== END 2017-02-24 14:23 | disposition home health service (06) | DRG 698 ==
LOC: ERH 02:19 → ERHI 04:45 → ENRESERV 08:26 → ENTRNSPT 09:17 → EDTRNSPTSTS 09:29 → EDTRNSPT 09:29 → 2NB 09:33 → CMPTRNSPT 09:57 → 2NB 22:32
PROVIDERS: Emergency Medicine; Student in an Organized Health Care Education/Training Program
PROC: 06H033Z Insertion of Infusion Device into Inferior Vena Cava, Percutaneous Approach (ICD-10-PCS; principal; 2017-02-22)
DX: T83.511A Infection and inflammatory reaction due to indwelling urethral catheter, initial encounter (principal); A41.51 Sepsis due to Escherichia coli [E. coli]; A41.59 Other Gram-negative sepsis; G82.50 Quadriplegia, unspecified; S14.109S Unspecified injury at unspecified level of cervical spinal cord, sequela; N39.0 Urinary tract infection, site not specified; Y84.6 Urinary catheterization as the cause of abnormal reaction of the patient, or of later complication, without mention of misadventure at the time of the procedure; X58.XXXS Exposure to other specified factors, sequela; E11.9 Type 2 diabetes mellitus without complications; G89.29 Other chronic pain
CPT/HCPCS: 2NBP; 71045; 74176; 77001; 81001; 82436; 87040; 87086; 93005; 93010; C1769; J0696; J0713; J1642; J1650; J2405